=== PATIENT | female | born 1990 | race Caucasian/White ===

== ENCOUNTER → 2023-11-18 16:05 | Outpatient (REF) | payer BC, SELFPAY ==
[2023-11-20 22:36] LABS: Bacterial Vaginosis by TMA Positive; Candida glabrata by TMA Negative; Candida species by TMA Negative; Trichomonas vaginalis by TMA Negative
== END ==
LOC: CPAP 16:05
PROVIDERS: ATTENDING PHYSICIAN Advanced Practice Midwife
DX: B37.31 Acute candidiasis of vulva and vagina (principal); N76.0 Acute vaginitis
CPT/HCPCS: 81513; 87481; 87661

== ENCOUNTER 2024-01-21 06:11 | Inpatient (IN) | payer BC, SELFPAY ==
[2024-01-21 06:32] VITALS: BP 110/82; BMI 30.6
[2024-01-21 07:30] LABS: Hematocrit 34.8 % (37.0-47.0); Mean Corp Hgb Conc. 34.5 g/dL (33.0-37.0); Mean Corpuscular Hgb 26.4 pg (27.0-31.0); Mean Corpuscular Volume 76.7 fL (81.0-99.0); Mean Platelet Volume 10.9 fL (7.4-10.4); Platelet Count 214 10^3/uL (130-400); Red Blood Cell Count 4.54 10^6/uL (4.20-5.40); Red Cell Dist. Width 15.2 % (11.5-14.5)
[2024-01-21] MEDS: LR 1000 IV ×2 (07:30→10:00)
[2024-01-21] MEDS: TYLENOL 1000 MG PO (08:10)
[2024-01-21] MEDS: ANCEF 10 IV (12:27)
[2024-01-21] MEDS: PITOCIN 30 UNITS/NSS 500 ML IV (12:29)
[2024-01-21] MEDS: ZOFRAN 4 MG IV ×2 (16:13→22:24)
[2024-01-21] MEDS: TORADOL 15 MG IV (18:33)
[2024-01-21] MEDS: REGLAN 10 MG IV (20:37)
[2024-01-22] MEDS: TORADOL 15 MG IV ×3 (00:47→13:00)
--- NOTE | 2024-01-22 03:33 | DOWNTIME ---
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 Downtime documentation of patient's care, including medication administrations, has been reconciled in the electronic record per guidelines. Refer to the
patient's paper chart under the miscellaneous tab to see printed paper medication records and downtime forms.
[2024-01-22 05:39] LABS: Hematocrit 29.5 % (37.0-47.0); Hemoglobin 10.1 g/dL (12.0-16.0); Mean Corp Hgb Conc. 34.2 g/dL (33.0-37.0); Mean Corpuscular Hgb 26.6 pg (27.0-31.0); Mean Corpuscular Volume 77.8 fL (81.0-99.0); Platelet Count 198 10^3/uL (130-400); Red Blood Cell Count 3.79 10^6/uL (4.20-5.40); Red Cell Dist. Width 15.2 % (11.5-14.5); White Blood Cell Count 12.9 10^3/uL (4.8-10.8)
--- NOTE | 2024-01-22 07:55 | W.PN.ANS.POP ---
Anesthesia Post Operative
- Anesthesia Post Op Note
Vital Signs Stable-See Nursing Note: Yes
Airway Patent: Yes
Adequate Pain Control: Yes
Change in Mental Status: No
Current Postoperative Nausea & Vomiting: No (pt complained of n/v for hours after c/s)
Anesthesia Complications: No
General Anesthetic Recall: No
Unplanned Admission: No
Post Op Hydration Adequate: Yes
[2024-01-22] MEDS: SENOKOT-S 1 TABLET PO (09:50)
[2024-01-22] MEDS: PRENATAL PLUS 1 TABLET PO (09:50)
[2024-01-22] MEDS: MOTRIN 600 MG PO (20:28)
[2024-01-22] MEDS: TYLENOL 650 MG PO (20:28)
[2024-01-23] MEDS: MOTRIN 600 MG PO ×3 (03:12→14:09)
[2024-01-23] MEDS: TYLENOL 650 MG PO ×3 (03:12→12:47)
[2024-01-23] MEDS: PRENATAL PLUS 1 TABLET PO (09:21)
[2024-01-23] MEDS: FEOSOL 325 MG PO (09:21)
[2024-01-23] MEDS: SENOKOT-S 1 TABLET PO (09:21)
[2024-01-23] MEDS: MYLICON 80 MG PO (09:22)
[2024-01-23 12:55] LABS: Syphilis/T. pallidum Ab Reflex Negative (Negative)
--- NOTE | 2024-01-23 13:00 | W.DS.TRANS ---
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
-
Discharge Instructions:
Discharge Diagnosis/Procedures vaginal delivery
Instructions:
Stand-Alone Forms: LDRP Delivery
Changes to Home Medications: No
Discharge Medications:
DC Medications w/original date entered in [email or web address]
Multi Tablet 1 tab PO DAILY Supplement 01/09/21
acetaminophen 325 mg tablet 650 mg (2 x 325 mg) PO Q4HPRN PRN mild pain #0 tabs 01/23/24
ferrous sulfate 325 mg (65 mg iron) tablet (FeroSul) 325 mg PO DAILY #0 tabs 01/23/24
ibuprofen 600 mg tablet 600 mg PO Q6HPRN PRN cramps #40 tabs 01/23/24
sennosides 8.6 mg-docusate sodium 50 mg tablet (Stool Softener-Laxative) 1 tab PO DAILYPRN PRN constipation #0 tabs 01/23/24
simethicone 80 mg chewable tablet 80 mg PO TIDPRN PRN flatulence #0 tabs 01/23/24
Home Medication Changes
Pending Results: No
Total time spent discharging patient (in min): 15
== END 2024-01-23 14:33 | disposition home or self-care (01) | DRG 788 ==
LOC: LDRP 06:11
PROVIDERS: ADMITTING PHYSICIAN Obstetrics & Gynecology
PROC: 10D00Z1 Extraction of Products of Conception, Low, Open Approach (ICD-10-PCS; 2024-01-21)
DX: O34.211 Maternal care for low transverse scar from previous cesarean delivery (principal); N85.8 Other specified noninflammatory disorders of uterus; O69.1XX0 Labor and delivery complicated by cord around neck, with compression, not applicable or unspecified; Z3A.39 39 weeks gestation of pregnancy; Z37.0 Single live birth
CPT/HCPCS: 36415; 85027; 86780; 86850; 86900; 86901